=== PATIENT | female | born 1935 | race Caucasian/White ===

== ENCOUNTER 2016-08-19 10:20 | Emergency (ER) | payer SELFPAY ==
[~2016-08-19] VITALS: Ht 165.1 cm; Wt 74.8 kg
--- NOTE | 2016-08-19 10:20 | NUR ---
RA102/39: CPR. PT WAS FOUND ON [facility] @ 5610, DOWN TIME 10 MINUTES PRIOR TO ARRIVAL OF EMS.
--- NOTE | 2016-08-19 10:22 | NUR ---
PATIENT PRONOUNSED BY DR. ALAS AT 1022AM.
--- NOTE | 2016-08-19 10:49 | NUR ---
DR. ALAS AT WITH PT'S FAMILY MEMBERS.
--- NOTE | 2016-08-19 11:00 | NUR ---
DR. MILADYS LOZOYA-PCP MADE AWARE OF PT'S STATUS.
--- NOTE | 2016-08-19 12:45 | NUR ---
FELICITAS received a call from ED TRIXIE Banegas for a social service consult for family members who's mother, the pt. . FELICITAS met with pt's daughter Nicole and son Delta in the ED. FELICITAS provided family with emotional support and offered her condolence to the family. The family has no burial arrangements as this was an unexpected . FELICITAS gave Nicole and Delta a list of Homes, cremation, Burial and cemetery resources. FELICITAS offered spiritual support/ clergy visitation, however family declined.
== END 2016-08-19 12:27 ==
LOC: ER 10:22
DX: I46.9 Cardiac arrest, cause unspecified (principal); Z95.0 Presence of cardiac pacemaker
CPT/HCPCS: A4606; Z7610